=== PATIENT | male | born 1975 | race Hispanic/Latino ===

== ENCOUNTER → 2018-05-01 | Day surgery (SDC) | payer BC ==
[~2018-05-01] MED LIST: ANTIBIOTIC PO; BACTRIM DS TAB1 EACH PO; BUPIVACAINE 0.25%/EPI 30ML SDV INJ ONE; CEFAZOLIN SOD 1 GM VIAL ONE; FENTANYL CITRATE/PF 100MCG/2 ML INJ ONE; HYDROGEN PEROXIDE 120 ML BTL ONE; IBUPROFEN400 MG PO; KETOROLAC TROMETHAMINE 30 MG/ML VIAL ONE; LIDOCAINE HCL 2% LOCAL INJ 5 ML SDV VIAL INJ ONE; MIDAZOLAM HCL 2 MG/2 ML VIAL ONE; NEOSTIGMINE 1 MG/ML 10ML VIAL ONE; ONDANSETRON HCL INJ 2MG/ML 2ML 2 MG/ML VIAL ONE; PROPOFOL IV EMULSION 10 MG/ML 20 ML VIAL ONE; SEVOFLURANE INHAL SOLN 250 ML PEN BTL ONE
[2018-05-01 07:28] LABS: BASOPHILS % 0.4 % (0.0-1.0); EOSINOPHILS # (AUTO) 0.3 (0.0-0.4); EOSINOPHILS % 2.6 % (0.0-6.0); HEMATOCRIT 46.5 % (38.2-49.6); HEMOGLOBIN 16.2 g/dL (14.0-18.0); LYMPHOCYTES # (AUTO) 2.8 (1.0-3.2); MEAN CORPUSCULAR HEMOGLOBIN 32.4 pg (28-32); MEAN CORPUSCULAR HGB CONC 34.8 g/dL (31-35); MONOCYTES % 10.1 % (4.4-11.3); NEUTROPHILS # (AUTO) 6.1 (2.1-6.9); NEUTROPHILS % 59.4 % (38.7-80.0); PLATELET COUNT 196 x10e3/uL (140-360); RED CELL DISTRIBUTION WIDTH 11.9 % (11.7-14.4)
[2018-05-01 07:41] LABS: ANION GAP 12.4 mmol/L (8-16); BLOOD UREA NITROGEN 16 mg/dL (7-26); BUN/CREATININE RATIO 21 (6-25); CALCIUM 8.5 mg/dL (8.4-10.2); CARBON DIOXIDE 26 mmol/L (22-29); CHLORIDE 100 mmol/L (98-107); CREATININE, SERUM 0.78 mg/dL (0.72-1.25); EST GLOMERULAR FILTRATION RATE > 60 ML/MIN (60-); GLUCOSE 77 mg/dL (74-118); POTASSIUM 3.4 mmol/L (3.5-5.1); SODIUM 135 mmol/L (136-145)
[2018-05-01 10:35] VITALS: BP 95/64
--- NOTE | 2018-05-01 12:15 | Operative Report ---
DATE OF PROCEDURE: 05/01/2018 SURGEON: Patricio March MD PREOPERATIVE DIAGNOSIS: Pilonidal abscess. POSTOPERATIVE DIAGNOSIS: Pilonidal abscess. PROCEDURE PERFORMED: Incision and drainage of pilonidal abscess. ANESTHESIA: General. ESTIMATED BLOOD LOSS: Minimal. DRAINS: None. COMPLICATION: None. INDICATION AND FINDINGS: The patient is a 43-year-old male with a recurrent pilonidal abscess, admitted for I and D. INTRAOPERATIVE FINDINGS: Pilonidal abscess with sinus formations extending into the upper part of the presacral region extending into the lower aspect of the sacral region. A quarter-inch drain was placed. PROCEDURE IN DETAIL: With the patient lying on the operative location in the supine position after administration of general anesthesia, he was prepped and draped for incision and drainage of pilonidal abscess. The patient was placed in the right lateral decubitus position. The abscess was located mainly in the upper presacral/sacral area and then an incision was made in that location. An ellipse of skin was excised, the cavity entered, loculations broken down, cultures and sensitivities were taken. The cavity lead into a sinus that was located in the upper part proper of the presacral region inferior to the abscess itself and then we excised part of the sinus and then cauterized as much as we could of the rest. We then debrided all the granulation and inflamed tissue down to hopefully viable tissue and then irrigated the wound with saline and peroxide and then packed it with a quarter-inch [place] drain. Sterile dressing was applied. The patient tolerated the procedure well and taken to the recovery room in stable condition. MD YANN Krsihna/NANCYL /[id number]
== END | disposition home or self-care (01) ==
LOC: OR 06:33
PROVIDERS: ATTEND Surgery
DX: L05.01 Pilonidal cyst with abscess (principal); K21.9 Gastro-esophageal reflux disease without esophagitis; K28.9 Gastrojejunal ulcer, unspecified as acute or chronic, without hemorrhage or perforation; I45.10 Unspecified right bundle-branch block; F41.9 Anxiety disorder, unspecified; Z87.891 Personal history of nicotine dependence
CPT/HCPCS: 11770; 36415; 80048; 85025; 87071; 87075; 87205; 93005; J0690; J1885; J2001; J2250; J2405; J2704; J2710